=== PATIENT | male | born 1945 | race Caucasian/White ===

== ENCOUNTER 2024-06-19 10:36 | Outpatient (REF) | payer MEDICARE, SELFPAY ==
--- NOTE | ~2024-06-19 | US_ITS ---
EXAMINATION: US RETROPERITONEAL COMPLETE (RENAL) CLINICAL INFORMATION: Calculus of bladder. COMPARISON: None available. TECHNIQUE: Real-time imaging of the kidneys and bladder. FINDINGS: RIGHT KIDNEY: 11.8 x 7.1 x 6.5 cm (SAG x AP x TRV). The kidney appears unremarkable in size, contour, and echogenicity. Renal cortical thickness is normal. No calculi or focal parenchymal lesion identified. No hydronephrosis. LEFT KIDNEY: 12.8 x 5.9 x 5.4 cm (SAG x AP x TRV). The kidney appears unremarkable in size, contour, and echogenicity. Renal cortical thickness is normal. No calculi or focal parenchymal lesion identified. No hydronephrosis. BLADDER: Well-distended. No bladder calculus demonstrated by the technologist. Bilateral ureteral jets are demonstrated. Prevoid bladder volume is 218 mL. Postvoid bladder volume is 164 mL. PROSTATE: Measures 6.8 x 6.0 x 4.7 cm, for an estimated volume of 100 mL. US/US retroperitoneal comp IMPRESSION: Postvoid urinary bladder volume residual measures 164 mL. Estimated prostate volume measures 100 mL. No bladder calculus identified. Electronically signed by: Red Velazquez MD 06/20/2024 05:37 PM EDT
== END 2024-06-19 10:37 | disposition home or self-care (01) ==
LOC: HO.US 10:36
PROVIDERS: Visit Provider Physician Assistant
DX: N21.0 Calculus in bladder (principal)
CPT/HCPCS: 76770